=== PATIENT | male | born 1975 | race Caucasian/White ===

== ENCOUNTER → 2023-03-24 07:40 | Outpatient (REF) | payer BC, SELFPAY | LOC: RCS 07:40 | PROVIDERS: ATTENDING PHYSICIAN Internal Medicine; FAMILY PHYSICIAN Family Medicine | DX: I25.10 Atherosclerotic heart disease of native coronary artery without angina pectoris (principal); R06.09 Other forms of dyspnea | CPT/HCPCS: 93017 ==

== ENCOUNTER → 2023-03-30 10:56 | Outpatient (REF) | payer BC, SELFPAY | LOC: DHCBC MAIN 10:56 | PROVIDERS: ATTENDING PHYSICIAN Internal Medicine; FAMILY PHYSICIAN Family Medicine | DX: I77.810 Thoracic aortic ectasia (principal); I25.10 Atherosclerotic heart disease of native coronary artery without angina pectoris; I45.4 Nonspecific intraventricular block; R06.09 Other forms of dyspnea | CPT/HCPCS: 93306 ==

== ENCOUNTER → 2023-05-02 10:49 | Outpatient (REF) | payer BC, SELFPAY ==
[2023-05-02 11:34] LABS: % Basophils 0.8 % (0-2); % Immature Granulocytes 0.2 % (0-0.5); Absolute Eosinophils 0.2 10^3/uL (0-0.7); Absolute Lymphocytes 1.4 10^3/uL (1.2-3.4); Absolute Monocytes 0.3 10^3/uL (0.1-0.6); Absolute Neutrophils 2.9 10^3/uL (1.4-6.5); Hematocrit 44.7 % (39.0-52.0); Hemoglobin 15.1 g/dL (13.0-18.0); Mean Corp Hgb Conc. 33.8 g/dL (33.0-37.0); Mean Corpuscular Hgb 29.7 pg (27.0-31.0); Nucleated Red Blood Cells % 0 % (-); Platelet Count 252 10^3/uL (130-400); Red Blood Cell Count 5.08 10^6/uL (4.70-6.10); Red Cell Dist. Width 13.2 % (11.5-14.5); White Blood Cell Count 4.8 10^3/uL (4.8-10.8)
[2023-05-02 12:39] LABS: ALT (SGPT) 35 U/L (0-50); AST (SGOT) 26 U/L (17-59); Albumin 4.3 g/dl (3.5-5.0); Alkaline Phosphatase 44 U/L (38-126); Blood Urea Nitrogen 17 mg/dl (9-20); Calcium 9.5 mg/dl (8.4-10.2); Carbon Dioxide 30 mmol/L (22-30); Chloride 102 mmol/L (98-107); Glucose 82 mg/dl (70-99); HDL Cholesterol 42 mg/dl; LDL Cholesterol, Calculated 48 mg/dl; Potassium 4.3 mmol/L (3.5-5.1); Sodium 139 mmol/L (135-145); Total Bilirubin 0.8 mg/dl (0.2-1.3); Total Cholesterol 100 mg/dl (50-199); Total Protein 6.2 g/dl (6.3-8.2); Triglyceride 53 mg/dl (10-149); Very Low Density Lipoprotein 10 mg/dl (0-30); eGFR > 60.00
[2023-05-02 12:55] LABS: TSH Reflex To Free T4 1.52 uIU/ml (0.47-4.68)
[2023-05-02 13:56] LABS: Glycohemoglobin (HgbA1c) 5.1 % (4.0-5.6)
== END ==
LOC: REG 10:49
PROVIDERS: ATTENDING PHYSICIAN Family Medicine
DX: R73.01 Impaired fasting glucose (principal); E78.00 Pure hypercholesterolemia, unspecified; Z13.29 Encounter for screening for other suspected endocrine disorder; R53.83 Other fatigue
CPT/HCPCS: 36415; 80053; 80061; 83036; 84443; 85025

== ENCOUNTER → 2023-11-07 11:14 | Outpatient (REF) | payer BC, SELFPAY ==
[2023-11-07 12:32] LABS: % Basophils 0.6 % (0-2); % Eosinophils 2.1 % (0-6); % Immature Granulocytes 0.2 % (0-0.5); % Lymphocytes 25.2 % (20.5-51.1); % Monocytes 5.4 % (1.7-9.3); % Neutrophils 66.5 % (42.2-75.2); Absolute Eosinophils 0.1 10^3/uL (0-0.7); Absolute Lymphocytes 1.2 10^3/uL (1.2-3.4); Absolute Monocytes 0.3 10^3/uL (0.1-0.6); Absolute Neutrophils 3.2 10^3/uL (1.4-6.5); Hematocrit 44.4 % (39.0-52.0); Hemoglobin 15.1 g/dL (13.0-18.0); Mean Corpuscular Hgb 29.4 pg (27.0-31.0); Mean Corpuscular Volume 86.4 fL (80.0-94.0); Mean Platelet Volume 9.9 fL (7.4-10.4); Nucleated Red Blood Cells % 0 % (-); Platelet Count 267 10^3/uL (130-400); Red Blood Cell Count 5.14 10^6/uL (4.70-6.10); Red Cell Dist. Width 12.9 % (11.5-14.5); White Blood Cell Count 4.9 10^3/uL (4.8-10.8)
[2023-11-07 12:40] LABS: Erythrocyte Sed Rate 3 mm/hour (0-20)
[2023-11-07 13:09] LABS: ALT (SGPT) 25 U/L (0-50); AST (SGOT) 24 U/L (17-59); Albumin 4.4 g/dl (3.5-5.0); Alkaline Phosphatase 35 U/L (38-126); Blood Urea Nitrogen 19 mg/dl (9-20); C-Reactive Protein < 5.00 mg/L (0.0-10.00); Calcium 9.6 mg/dl (8.4-10.2); Carbon Dioxide 29 mmol/L (22-30); Chloride 102 mmol/L (98-107); Glucose 91 mg/dl (70-99); HDL Cholesterol 51 mg/dl; LDL Cholesterol, Calculated 79 mg/dl; Potassium 4.6 mmol/L (3.5-5.1); Sodium 141 mmol/L (135-145); Total Bilirubin 0.8 mg/dl (0.2-1.3); Total Cholesterol 146 mg/dl (50-199); Total Protein 6.5 g/dl (6.3-8.2); Triglyceride 81 mg/dl (10-149); Uric Acid 4.9 mg/dl (3.5-8.5); Very Low Density Lipoprotein 16 mg/dl (0-30); eGFR > 60.00
[2023-11-09 08:02] LABS: ANA, IgG Reflex to HEp-2 None Detected (None Detected)
[2023-11-09 14:54] LABS: Rheumatoid Agglutinin Less Than 10 IU (<10 IU)
[2023-11-09 15:01] LABS: Lyme Antibody Screen, EIA Negative (Negative)
[2023-11-09 22:31] LABS: SSA 52 (Ro)(ENA) Ab, IgG 3 AU/mL (0-40); SSA 60 (Ro)(ENA) Ab, IgG 0 AU/mL (0-40); SSB (La)(ENA) Ab, IgG 0 AU/mL (0-40)
== END ==
LOC: REG 11:14
PROVIDERS: ATTENDING PHYSICIAN Family Medicine
DX: I10 Essential (primary) hypertension (principal); R73.01 Impaired fasting glucose; K76.0 Fatty (change of) liver, not elsewhere classified; Z00.00 Encounter for general adult medical examination without abnormal findings; E78.00 Pure hypercholesterolemia, unspecified
CPT/HCPCS: 36415; 80053; 80061; 84443; 84550; 85025; 85652; 86038; 86140; 86235; 86430; 86618

== ENCOUNTER → 2024-02-29 07:40 | Outpatient (REF) | payer BC, SELFPAY ==
[2024-02-29 10:24] LABS: ALT (SGPT) 31 U/L (0-50); AST (SGOT) 25 U/L (17-59); Albumin 4.4 g/dl (3.5-5.0); Alkaline Phosphatase 40 U/L (38-126); Blood Urea Nitrogen 19 mg/dl (9-20); Calcium 9.1 mg/dl (8.4-10.2); Carbon Dioxide 29 mmol/L (22-30); Chloride 101 mmol/L (98-107); Glucose 83 mg/dl (70-99); HDL Cholesterol 45 mg/dl; LDL Cholesterol, Calculated 65 mg/dl; Potassium 4.2 mmol/L (3.5-5.1); Sodium 139 mmol/L (135-145); Total Bilirubin 0.9 mg/dl (0.2-1.3); Total Cholesterol 127 mg/dl (50-199); Total Protein 6.5 g/dl (6.3-8.2); Triglyceride 86 mg/dl (10-149); Very Low Density Lipoprotein 17 mg/dl (0-30); eGFR > 60.00
== END ==
LOC: REG 07:40
PROVIDERS: ATTENDING PHYSICIAN Internal Medicine; FAMILY PHYSICIAN Family Medicine
DX: E78.00 Pure hypercholesterolemia, unspecified (principal)
CPT/HCPCS: 36415; 80053; 80061

== ENCOUNTER → 2024-06-12 11:04 | Outpatient (REF) | payer BC, SELFPAY ==
[2024-06-12 12:57] LABS: ALT (SGPT) 32 U/L (0-50); AST (SGOT) 24 U/L (17-59); HDL Cholesterol 44 mg/dl; LDL Cholesterol, Calculated 66 mg/dl; Total Cholesterol 122 mg/dl (50-199); Triglyceride 62 mg/dl (10-149); Very Low Density Lipoprotein 12 mg/dl (0-30)
== END ==
LOC: REG 11:04
PROVIDERS: ATTENDING PHYSICIAN Internal Medicine; FAMILY PHYSICIAN Family Medicine
DX: E78.00 Pure hypercholesterolemia, unspecified (principal); I10 Essential (primary) hypertension
CPT/HCPCS: 36415; 80061; 84450; 84460

== ENCOUNTER → 2024-10-31 07:43 | Outpatient (REF) | payer BC, SELFPAY ==
[2024-10-31 08:41] LABS: ALT (SGPT) 32 U/L (0-50); AST (SGOT) 25 U/L (17-59); HDL Cholesterol 57 mg/dl; LDL Cholesterol, Calculated 45 mg/dl; Very Low Density Lipoprotein 14 mg/dl (0-30)
== END ==
LOC: REG 07:43
PROVIDERS: ATTENDING PHYSICIAN Internal Medicine; FAMILY PHYSICIAN Family Medicine
DX: I25.10 Atherosclerotic heart disease of native coronary artery without angina pectoris (principal)
CPT/HCPCS: 36415; 80061; 84450; 84460

== ENCOUNTER → 2025-01-07 13:37 | Outpatient (REF) | payer BC, SELFPAY | LOC: REG 13:37 | PROVIDERS: ATTENDING PHYSICIAN Family Medicine | DX: M25.521 Pain in right elbow (principal); M25.551 Pain in right hip | CPT/HCPCS: 73080; 73502 ==